=== PATIENT | male | born 1990 | race Caucasian/White ===

== ENCOUNTER 2017-09-28 12:40 | Emergency (ER) | payer OTHER ==
[~2017-09-28] VITALS: Ht 190.5 cm; Wt 171.6 kg
[2017-09-28 12:52] VITALS: BP_DIAS 126; TEMP 37; Ht 190.5 cm; Wt 171.6 kg
[2017-09-28] MEDS ORDERED: HYDROCODONE/ACETAMOPHEN 5/325MG TAB PO STA (13:10)
[2017-09-28] MEDS ORDERED: IBUPROFEN 800 MG TAB PO STA (13:10)
--- NOTE | 2017-09-28 13:45 | DIAGNOSTIC IMAGING REPORT ---
L FOREARM 2 VIEWS ROUTINE CLINICAL HISTORY: fall/ forearm injury trauma. Pain. COMPARISON: None. DISCUSSION: Slightly distracted fracture radial styloid. Additional hairline fracture extending to the articular surface at the mid radial articular surface. This again is nondisplaced. Main osseous structures are unremarkable. Mild soft tissue edema. IMPRESSION: 1. Comminuted fracture distal radius. 2. Slight distraction of the oblique fracture through the base of the radial styloid 3. Nondisplaced hairline fracture mid radial articular services. The above report was generated using voice recognition software. It may contain grammatical, syntax or spelling errors. Electronically signed by: Evens Linares M.D. 09/28/2017 1:44 PM Dictated Date/Time: 09/28/2017 1:42 PM
[2017-09-28] MEDS ORDERED: HYDR-5688 PO (13:47)
--- NOTE | 2017-09-28 13:52 | EMERGENCY ROOM VISIT NOTE ---
ED Visit Note First contact with patient: 13:07 CHIEF COMPLAINT: Left Forearm injury today HISTORY OF PRESENT ILLNESS: This 27-year-old male presents the ER with chief complaint of left forearm injury. The patient states that he fell on the ice and tried to catch himself with his left arm. He points to the distal forearm but not over the wrist joint as the area of pain. He denies any numbness and tingling in his fingers. The patient denies any elbow pain. The patient denies any head injury or loss of consciousness. The patient is right-hand dominant. The patient has not taken anything for pain. The patient has not seen any orthopedics in the area in the past. He denies any prior left wrist or forearm injury. REVIEW OF SYSTEMS: 6 system review was performed and was negative unless stated otherwise in history of present illness. PMH: The patient is healthy; there is no significant medical or surgical history. SOCIAL HISTORY: Patient lives with his fianc. The patient denies tobacco use but admits to occasional alcohol use. PHYSICAL EXAM: Vital Signs: Were reviewed Reviewed Nurse's notes. GEN.: 27-year -old obese male appears in no acute distress. MENTAL Status: Alert and oriented 3. LEFT FOREARM: No gross bony deformity noted. The patient is tender to palpation over the distal third of the forearm radial aspect. Patient has limited range of motion of the wrist. Patient has full range of motion of the elbow. Hand sensation is intact. The fingers are warm and well perfused. EMERGENCY DEPARTMENT COURSE: The patient was evaluated. The patient was given Motrin 800 mg by mouth and [place] 5/325 mg 2 tablets by mouth for pain. X-ray of the left forearm was ordered and interpreted by the radiologist and myself. DIAGNOSTICS: L FOREARM 2 VIEWS ROUTINE CLINICAL HISTORY: fall/ forearm injury trauma. Pain. COMPARISON: None. DISCUSSION: Slightly distracted fracture radial styloid. Additional hairline fracture extending to the articular surface at the mid radial articular surface. This again is nondisplaced. Main osseous structures are unremarkable. Mild soft tissue edema. IMPRESSION: 1. Comminuted fracture distal radius. 2. Slight distraction of the oblique fracture through the base of the radial styloid 3. Nondisplaced hairline fracture mid radial articular services. The above report was generated using voice recognition software. It may contain grammatical, syntax or spelling errors. Electronically signed by: Evens Linares M.D. The patient was informed of the findings. The patient was placed in a volar splint and a sling. Post-splinting the patient was neurovascularly intact. The patient was discharged home in stable condition. DIAGNOSIS: Fractured distal left radius DISCHARGE INSTRUCTIONS AND TREATMENT: Keep arm in splint and sling until evaluated by orthopedics. Ice intermittently over the next 24 hours. Ibuprofen 600 mg every 6 hours as needed for pain with food. Take [place] as directed for more severe pain. Do not drive while taking the [place]. Call orthopedics as soon as possible for follow-up appointment. Current/Historical Medications Scheduled PRN Hydrocodone/Acetaminophen 5MG/325MG ([place] 5MG/325MG), 2 TABLETS PO Q6 PRN for Pain Allergies Coded Allergies: No Known Allergies (Unverified , 09/28/17) Vital Signs Date Time Temp Pulse Resp B/P (MAP) Pulse Ox O2 Delivery O2 Flow Rate FiO2 09/28/17 12:52 37.0 108 18 165/126 94 Room Air Medications Administered Medications (Trade) Dose Ordered Sig/Richard Route Start Time Stop Time Status Last Admin Dose Admin Ibuprofen (Motrin Tab) 800 mg NOW STAT PO 09/28/17 13:10 09/28/17 13:12 DC 09/28/17 13:22 800 MG Acetaminophen/ Hydrocodone Bitart ([place] 5/325 Tab) 2 tab NOW STAT PO 09/28/17 13:10 09/28/17 13:12 DC 09/28/17 13:23 2 TAB Departure Information Prescriptions Hydrocodone/Acetaminophen 5MG/325MG ([place] 5MG/325MG) Tab 2 TABLETS PO Q6 Y for Pain, #20 TAB For Initial Treatment Prov: Geraldine Linares, PAConcepcion 09/28/17 Patient Instructions My [facility]
[2017-09-28 14:29] VITALS: BP_SYST 88; PULSE 80; O2SAT 98
== END 2017-09-28 14:31 | disposition home or self-care (01) ==
LOC: C.EDB 12:42 → C.EDD 14:31
DX: S52.502A Unspecified fracture of the lower end of left radius, initial encounter for closed fracture (principal); W00.9XXA Unspecified fall due to ice and snow, initial encounter

== ENCOUNTER → 2017-12-29 | Outpatient (CLI) | payer OTHER ==
[~2017-12-29] MED LIST: HYDR-5688 PO
== END | disposition home or self-care (01) ==
LOC: C.RDSM 17:54
PROVIDERS: ATTEND Orthopaedic Surgery Sports Medicine
DX: S52.515D Nondisplaced fracture of left radial styloid process, subsequent encounter for closed fracture with routine healing (principal); X58.XXXD Exposure to other specified factors, subsequent encounter